=== PATIENT | female | born 1980 | race Two or more races ===

== ENCOUNTER 2025-02-15 17:28 | Emergency (ER) | payer OTHER ==
[2025-02-15] MEDS: Fluorescein 1 MG Ophth Strip EYEBOTH ONE (18:06)
[2025-02-15] MEDS: Acetaminophen/HYDROcodone 325-10 MG Tab PO ONE (18:07)
[2025-02-15] MEDS: Ondansetron 4 MG Tab.DIS PO ONE (18:07)
== END 2025-02-15 18:51 | disposition home or self-care (01) ==
LOC: JD.ED 17:28
DX: G43.909 Migraine, unspecified, not intractable, without status migrainosus (principal); Z91.018 Allergy to other foods
CPT/HCPCS: 70450; 99284; A9270; J3490